=== PATIENT | female | born 1985 | race African-American/Black ===

== ENCOUNTER → 2020-04-06 08:05 | Outpatient (BNVA) | payer OTHER, SELFPAY | PROVIDERS: Visit Provider Obstetrics & Gynecology | DX: Z30.09 Encounter for other general counseling and advice on contraception (principal) | CPT/HCPCS: 99212 ==

== ENCOUNTER 2020-04-11 11:13 | Outpatient (REF) | payer OTHER, SELFPAY ==
[2020-04-11 14:26] LABS: CT PCR NOT DETECTED (Not Detect.); NG PCR NOT DETECTED (Not Detect.)
== END 2020-04-11 11:14 | disposition home or self-care (01) ==
LOC: HO.LAB 11:13
PROVIDERS: PCP Internal Medicine; Visit Provider Obstetrics & Gynecology
DX: Z30.09 Encounter for other general counseling and advice on contraception (principal)
CPT/HCPCS: 87491; 87591

== ENCOUNTER → 2020-05-23 08:49 | Outpatient (BNVA) | payer OTHER, SELFPAY | PROVIDERS: PCP Internal Medicine; Visit Provider Obstetrics & Gynecology | DX: Z76.89 Persons encountering health services in other specified circumstances (principal) ==

== ENCOUNTER 2020-06-17 | Outpatient (REF) | payer OTHER, SELFPAY ==
[2020-06-18 14:17] LABS: H Pylori Breath Test NOT DETECTED (NOT DETECTED)
== END 2020-06-17 00:01 | disposition home or self-care (01) ==
LOC: HO.LNP
PROVIDERS: Visit Provider Surgery
DX: Z01.818 Encounter for other preprocedural examination (principal); E66.01 Morbid (severe) obesity due to excess calories; Z11.0 Encounter for screening for intestinal infectious diseases
CPT/HCPCS: 83013

== ENCOUNTER → 2020-06-17 10:31 | Outpatient (BNVA) | payer OTHER, SELFPAY | PROVIDERS: PCP Internal Medicine; Visit Provider Surgery | DX: Z01.818 Encounter for other preprocedural examination (principal); E66.01 Morbid (severe) obesity due to excess calories; Z68.41 Body mass index [BMI] 40.0-44.9, adult; R06.02 Shortness of breath | CPT/HCPCS: 83013; 99202; 99211 ==

== ENCOUNTER → 2020-06-20 08:04 | Outpatient (BNVA) | payer OTHER, SELFPAY | PROVIDERS: PCP Internal Medicine; Visit Provider Obstetrics & Gynecology | DX: Z30.431 Encounter for routine checking of intrauterine contraceptive device (principal) | CPT/HCPCS: 99212 ==

== ENCOUNTER 2020-06-21 09:22 | Outpatient (REF) | payer OTHER, SELFPAY ==
--- NOTE | 2020-06-21 09:55 | ECG_ITS ---
Test Reason : CP Blood Pressure : / mmHG Vent. Rate : 091 BPM Atrial Rate : 091 BPM P-R Int : 148 ms QRS Dur : 076 ms QT Int : 380 ms P-R-T Axes : 050 036 004 degrees QTc Int : 467 ms Normal sinus rhythm Nonspecific T wave abnormality Prolonged QT Abnormal ECG When compared to the previous EKG of Nonspecific T wave changes present Referred By: Thais eNff Electronically Signed By:TABATHA WYLIE MD
[2020-06-21 10:04] LABS: MANUAL DIFF FLAG NO
[2020-06-21 10:08] LABS: Basophils Absolute Auto 0.1 X10*3/uL (0.0-0.2); Basophils Percent Auto 0.6 % (0-2); Eosinophils Absolute Auto 0.3 X10*3/uL (0.0-0.4); Hematocrit 36.8 % (37-47); Hemoglobin 11.7 g/dl (12.0-16.0); Imm Gran Abs Auto 0.02 X10*3/uL (0.00-0.03); Imm Gran Pct Auto 0.2 % (0.0-0.4); Lymphocytes Absolute Auto 2.5 X10*3/uL (1.2-4.9); Lymphocytes Percent Auto 28.1 % (20-40); Mean Corpuscular HGB Conc 31.8 g/dl (31.0-35.0); Mean Corpuscular Hemoglobin 21.3 pg (27.0-33.0); Mean Corpuscular Volume 66.9 fL (80-98); Mean Platelet Volume 9.3 fL (9.4-12.3); Monocytes Absolute Auto 0.6 X10*3/uL (0.1-1.2); Monocytes Percent Auto 6.7 % (2-11); Neutrophils Absolute Auto 5.4 X10*3/uL (2.0-8.3); Neutrophils Percent Auto 61.4 % (45-73); Platelet Count 439 X10*3/uL (160-400); Red Cell Distribution Width 18.2 % (11.0-16.0); White Blood Count 8.8 X10*3/uL (4.8-10.8)
--- NOTE | 2020-06-21 10:19 | XR_ITS ---
EXAMINATION: XR CHEST CLINICAL INFORMATION: Shortness of breath. COMPARISON: None TECHNIQUE: 2 views of the chest were obtained. FINDINGS: The lungs are clear. The cardiomediastinal silhouette is normal in size. There is no pleural effusion or pneumothorax. No acute osseous abnormality. XR/XR chest 2V IMPRESSION: No acute cardiopulmonary findings.
[2020-06-21 10:33] LABS: Alanine Aminotransferase 21 U/L (0-31); Albumin Level 4.3 g/dL (3.5-5.0); Alkaline Phosphatase 77 U/L (39-117); Anion Gap 13 (12-20); Aspartate Amino Transferase 17 U/L (5-31); Bilirubin Total 0.3 mg/dL (0.0-1.0); Blood Urea Nitrogen 9 mg/dL (9-16); C Reactive Protein 4.28 mg/dL (< or = 0.50); Calcium 9.1 mg/dL (8.4-10.2); Carbon Dioxide 24 mmol/L (22-29); Chloride 107 mmol/L (96-108); Cholesterol 201 mg/dL; Estimated Glomerular Filt Rate > 60; Glucose Fasting 88 mg/dL (60-99); HDL Cholesterol 34 mg/dL; Iron 37 mcg/dL (30-160); LDL Cholesterol Calculated 148 mg/dl; Percent Iron Saturation 10 % (15-50); Sodium 140 mmol/L (135-145); Total Iron Binding Capacity 357 mcg/dL (228-428); Total Protein 7.4 g/dL (6.5-8.0); Triglycerides 96 mg/dL; Unsaturated Iron Binding 320 ug/dL
[2020-06-21 10:49] LABS: Thyroid Stimulating Hormone 0.55 uIU/mL (0.32-4.0); Vitamin D 25-OH Total 11.1 ng/mL (>30)
[2020-06-21 10:56] LABS: Vitamin B12 866 pg/mL (200-900)
[2020-06-22 16:58] LABS: Calcium (PTHI) 9.3 mg/dL (8.6-10.2); PTHI 23 pg/mL (14-64)
[2020-06-23 23:43] LABS: Zinc 54 mcg/dL (60-130)
[2020-06-24 21:37] LABS: Vitamin A 35 mcg/dL (38-98)
[2020-06-29 13:06] LABS: Vitamin B1 10 nmol/L (8-30)
== END 2020-06-21 09:23 | disposition home or self-care (01) ==
LOC: HO.LAB 09:22
PROVIDERS: Visit Provider Surgery
DX: Z01.818 Encounter for other preprocedural examination (principal); R06.02 Shortness of breath; E55.9 Vitamin D deficiency, unspecified
CPT/HCPCS: 36415; 71046; 80053; 80061; 82306; 82607; 83540; 83970; 84425; 84443; 84590; 84630; 85025; 86140; 93005

== ENCOUNTER → 2020-07-01 08:28 | Outpatient (BNVA) | payer OTHER, SELFPAY | PROVIDERS: PCP Internal Medicine; Visit Provider Surgery ==

== ENCOUNTER 2020-07-04 08:08 | Outpatient (REF) | payer OTHER, SELFPAY ==
[2020-07-08 06:57] LABS: HPV mRNA E6/E7 rflx Not Detected (Not Detected)
== END 2020-07-04 08:09 | disposition home or self-care (01) ==
LOC: HO.LAB 08:08
PROVIDERS: PCP Nurse Practitioner; Visit Provider Obstetrics & Gynecology
DX: Z01.419 Encounter for gynecological examination (general) (routine) without abnormal findings (principal)
CPT/HCPCS: 36415; 87624; 88142

== ENCOUNTER → 2020-07-15 08:08 | Outpatient (BNVA) | payer OTHER, SELFPAY | PROVIDERS: PCP Internal Medicine; Visit Provider Dietitian, Registered ==

== ENCOUNTER 2020-07-25 11:06 | Outpatient (REF) | payer OTHER, SELFPAY ==
[2020-07-25 12:08] LABS: Vitamin D 25-OH Total 42.6 ng/mL (>30)
[2020-07-28 23:07] LABS: Vitamin A 35 mcg/dL (38-98)
== END 2020-07-25 11:07 | disposition home or self-care (01) ==
LOC: HO.LAB 11:06
PROVIDERS: Visit Provider Surgery
DX: Z01.818 Encounter for other preprocedural examination (principal); E55.9 Vitamin D deficiency, unspecified
CPT/HCPCS: 36415; 82306; 84590

== ENCOUNTER 2020-07-28 10:47 | Outpatient (REF) | payer OTHER, SELFPAY ==
[2020-08-02 02:26] LABS: Zinc 65 mcg/dL (60-130)
== END 2020-07-28 10:48 | disposition home or self-care (01) ==
LOC: HO.LAB 10:47
PROVIDERS: Visit Provider Surgery
DX: Z01.818 Encounter for other preprocedural examination (principal)
CPT/HCPCS: 36415; 84630

== ENCOUNTER → 2020-08-15 10:35 | Outpatient (BNVA) | payer OTHER, SELFPAY | PROVIDERS: PCP Internal Medicine; Visit Provider Surgery | DX: E66.01 Morbid (severe) obesity due to excess calories (principal); Z68.41 Body mass index [BMI] 40.0-44.9, adult | CPT/HCPCS: 99212 ==

== ENCOUNTER → 2020-09-05 13:15 | Outpatient (BNVA) | payer OTHER, SELFPAY | PROVIDERS: PCP Internal Medicine; Visit Provider Surgery | DX: E66.01 Morbid (severe) obesity due to excess calories (principal); Z68.41 Body mass index [BMI] 40.0-44.9, adult | CPT/HCPCS: 99212 ==

== ENCOUNTER → 2020-09-20 13:43 | Outpatient (BNVA) | payer OTHER, SELFPAY | PROVIDERS: PCP Internal Medicine; Visit Provider Surgery | DX: E66.01 Morbid (severe) obesity due to excess calories (principal); Z68.41 Body mass index [BMI] 40.0-44.9, adult | CPT/HCPCS: 99212 ==

== ENCOUNTER 2020-10-10 13:08 | Outpatient (REF) | payer OTHER, SELFPAY ==
[2020-10-14 10:37] LABS: Vitamin A 35 mcg/dL (38-98)
== END 2020-10-10 13:09 | disposition home or self-care (01) ==
LOC: HO.LAB 13:08
PROVIDERS: PCP Internal Medicine; Visit Provider Surgery
DX: Z01.818 Encounter for other preprocedural examination (principal); E50.9 Vitamin A deficiency, unspecified
CPT/HCPCS: 36415; 84590

== ENCOUNTER → 2020-11-01 13:33 | Outpatient (BNVA) | payer OTHER, SELFPAY | PROVIDERS: PCP Internal Medicine; Visit Provider Surgery | DX: E66.01 Morbid (severe) obesity due to excess calories (principal); Z68.41 Body mass index [BMI] 40.0-44.9, adult | CPT/HCPCS: 99212 ==

== ENCOUNTER → 2020-12-22 13:56 | Outpatient (BNVA) | payer OTHER, SELFPAY | PROVIDERS: PCP Internal Medicine; Visit Provider Surgery | DX: E66.01 Morbid (severe) obesity due to excess calories (principal); Z68.41 Body mass index [BMI] 40.0-44.9, adult | CPT/HCPCS: 99212 ==

== ENCOUNTER → 2021-01-03 12:49 | Outpatient (BNVA) | payer OTHER, SELFPAY | PROVIDERS: PCP Internal Medicine; Visit Provider Surgery | DX: E66.01 Morbid (severe) obesity due to excess calories (principal); Z68.41 Body mass index [BMI] 40.0-44.9, adult | CPT/HCPCS: 99212 ==

== ENCOUNTER → 2021-01-06 13:29 | Outpatient (BNVA) | payer OTHER, SELFPAY | PROVIDERS: PCP Internal Medicine; Visit Provider Physician Assistant ==

== ENCOUNTER 2021-01-11 09:46 | Inpatient (IN) | payer OTHER, SELFPAY ==
--- NOTE | 2021-01-03 13:57 | ECG_ITS ---
Test Reason : SOB Blood Pressure : / mmHG Vent. Rate : 093 BPM Atrial Rate : 093 BPM P-R Int : 142 ms QRS Dur : 080 ms QT Int : 366 ms P-R-T Axes : 053 035 004 degrees QTc Int : 455 ms Normal sinus rhythm Nonspecific T wave abnormality Abnormal ECG When compared with ECG of 21-JUN-2020 10:17, No significant change was found Referred By: Thais Neff Electronically Signed By:YUMIKO ERICKSON
[2021-01-03 14:34] LABS: MANUAL DIFF FLAG NO
[2021-01-03 14:39] LABS: Basophils Absolute Auto 0.1 X10*3/uL (0.0-0.2); Basophils Percent Auto 0.6 % (0-2); Eosinophils Absolute Auto 0.2 X10*3/uL (0.0-0.4); Eosinophils Percent Auto 2.3 % (0-4); Hematocrit 38.3 % (37-47); Hemoglobin 12.3 g/dl (12.0-16.0); Imm Gran Abs Auto 0.01 X10*3/uL (0.00-0.03); Imm Gran Pct Auto 0.1 % (0.0-0.4); Lymphocytes Absolute Auto 3.2 X10*3/uL (1.2-4.9); Lymphocytes Percent Auto 32.9 % (20-40); Mean Corpuscular HGB Conc 32.1 g/dl (31.0-35.0); Mean Corpuscular Hemoglobin 22.6 pg (27.0-33.0); Mean Corpuscular Volume 70.4 fL (80-98); Mean Platelet Volume 9.5 fL (9.4-12.3); Monocytes Absolute Auto 0.6 X10*3/uL (0.1-1.2); Monocytes Percent Auto 6.5 % (2-11); Neutrophils Absolute Auto 5.6 X10*3/uL (2.0-8.3); Neutrophils Percent Auto 57.6 % (45-73); Platelet Count 386 X10*3/uL (160-400); Red Blood Count 5.44 X10*6/uL (4.20-5.50); White Blood Count 9.7 X10*3/uL (4.8-10.8)
[2021-01-03 14:42] LABS: Glucose Urine UA NEG (NEG); Leukocyte Esterase Urine NEG (NEG); Nitrite Urine NEG (NEG); Specific Gravity - Urine <= 1.005 (1.005-1.025); Urine Blood NEG (NEG); Urine Ketones 15 MG/DL (NEG); Urine Protein NEG (NEG-TRACE)
[2021-01-03 14:43] LABS: INTERNATIONAL NORM RATIO 1.1 (0.9-1.1); Prothrombin Time 12.9 SEC (9.9-13.0)
[2021-01-03 14:44] LABS: Appearance Urine CLEAR; Color Urine STRAW
[2021-01-03 14:45] LABS: UPreg QC Valid YES; Urine Pregnancy NEGATIVE (NEGATIVE)
[2021-01-03 14:55] LABS: Albumin Level 4.4 g/dL (3.5-5.0); Anion Gap 16 (12-20); Blood Urea Nitrogen 7 mg/dL (9-16); Calcium 9.4 mg/dL (8.4-10.2); Carbon Dioxide 23 mmol/L (22-29); Chloride 105 mmol/L (96-108); Estimated Glomerular Filt Rate > 60; Glucose Random 76 mg/dL (60-115); Potassium 3.9 mmol/L (3.3-5.1); Sodium 140 mmol/L (135-145)
[2021-01-05 16:34] VITALS: BMI 41.1
[2021-01-09 12:36] LABS: Vitamin A 31 mcg/dL (38-98)
--- NOTE | 2021-01-10 09:37 | P.CONAN_ITS ---
Documented by User: Betsy Larios 01/10/21 09:38 HPI - Anesthesia Eval Consult details Narrative: 35yo F for Gastrectomy Sleeve, EGD, Poss Diaphragmatic Hernia,Poss open PMFSH Active Problems Active Problems: All Active Problems (Updated 01/05/21 @ 16:32 by Blanca Rossi) Family planning (Acute) Shortness of breath (Acute) Morbid obesity due to excess calories (Acute) BMI 40.0-44.9, adult (Acute) Preoperative examination (Acute) IUD check up (Acute) Vitamin D deficiency (Acute) Zinc deficiency (Acute) Vitamin A deficiency (Acute) Well woman exam (Acute) Past Medical History Medical History (Updated 01/11/21 @ 14:22 by Odilia Leal PA-C) COVID-19 vaccine series completed Hiatal hernia Hypercholesterolemia PONV (postoperative nausea and vomiting) Family History Family History Father No problems noted. Mother No problems noted. Sister No problems noted. Son No problems noted. Daughter No problems noted. Maternal Grandfather Heart disease Maternal Grandmother Type 2 diabetes mellitus Surgical History Surgical History (Updated 01/11/21 @ 14:22 by Odilia Leal PA-C) History of History of repair of hiatal hernia S/P laparoscopic sleeve gastrectomy Social History Social History Are you a primary personal care aid to a significant other at home: Yes (2 children) Do you presently have visiting nurse or other home services: No Alcohol intake: former Patient Tobacco Use Status: Never used Tobacco Have you been hit, kicked, punched, or otherwise hurt by someone within the past year? If so, by whom?: No Are you DNR?: No Advance Directives: No Advance Directives Information Provided: No Advance Directives on File: No Recently lost weight without trying: No Patient : No FDLMP: 06/2020 : No Poor oral hygiene: No Sexual orientation: Straight/Heterosexual Gender identity: female Meds Allergies Allergy/AdvReac Type Severity Reaction Status Date / Time tetracycline Allergy Mild Hives Verified 01/11/21 09:44 Home Medications Medication Instructions Recorded Confirmed Last Taken Type levonorgestrel 20 mcg/24 hours (6 INTRAUTERINE .5 years ea 05/23/20 01/03/21 Unknown History yrs) 52 mg intrauterine device (Mirena) Exam Exam Date and Time: January 10, 2021 0937 Height,Weight and Vital Signs: Height 5 ft 4 in Weight 108.862 kg Pertinent Lab Results Pertinent Lab Results: Laboratory Tests 01/03/21 01/03/21 01/03/21 14:00 14:00 14:00 WBC 9.7 RBC 5.44 Hgb 12.3 Hct 38.3 MCV 70.4 L MCH 22.6 L MCHC 32.1 RDW 18.0 H Plt Count 386 MPV 9.5 Immature Gran % (Auto) 0.1 Neut % (Auto) 57.6 Lymph % (Auto) 32.9 [place] % (Auto) 6.5 Eos % (Auto) 2.3 Baso % (Auto) 0.6 Lymph # (Auto) 3.2 [place] # (Auto) 0.6 Eos # (Auto) 0.2 Baso # (Auto) 0.1 Abs Immat Gran (auto) 0.01 Absolute Neuts (auto) 5.6 Absolute Nucleated RBC 0.000 Nucleated RBC % (auto) 0.0 PT 12.9 INR 1.1 APTT 39.0 H Sodium Potassium Chloride Carbon Dioxide Anion Gap BUN Creatinine Estim Creat Clear Calc Estimated GFR Random Glucose Calcium Albumin Vitamin A Urine Color STRAW Urine Appearance CLEAR Urine pH 6.0 Ur Specific [place] <= 1.005 Urine Protein NEG Urine Glucose (UA) NEG Urine Ketones 15 Urine Blood NEG Urine Nitrite NEG Ur Leukocyte Esterase NEG Urine Test Blood Type Antibody Screen 01/03/21 01/03/21 01/03/21 14:00 14:00 14:00 WBC RBC Hgb Hct MCV MCH MCHC RDW Plt Count MPV Immature Gran % (Auto) Neut % (Auto) Lymph % (Auto) [place] % (Auto) Eos % (Auto) Baso % (Auto) Lymph # (Auto) [place] # (Auto) Eos # (Auto) Baso # (Auto) Abs Immat Gran (auto) Absolute Neuts (auto) Absolute Nucleated RBC Nucleated RBC % (auto) PT INR APTT Sodium 140 Potassium 3.9 Chloride 105 Carbon Dioxide 23 Anion Gap 16 BUN 7 L Creatinine 0.68 Estim Creat Clear Calc TNP Estimated GFR > 60 Random Glucose 76 Calcium 9.4 Albumin 4.4 Vitamin A 31 L Urine Color Urine Appearance Urine pH Ur Specific [place] Urine Protein Urine Glucose (UA) Urine Ketones Urine Blood Urine Nitrite Ur Leukocyte Esterase Urine Test NEGATIVE Blood Type Antibody Screen 01/03/21 14:00 WBC RBC Hgb Hct MCV MCH MCHC RDW Plt Count MPV Immature Gran % (Auto) Neut % (Auto) Lymph % (Auto) [place] % (Auto) Eos % (Auto) Baso % (Auto) Lymph # (Auto) [place] # (Auto) Eos # (Auto) Baso # (Auto) Abs Immat Gran (auto) Absolute Neuts (auto) Absolute Nucleated RBC Nucleated RBC % (auto) PT INR APTT Sodium Potassium Chloride Carbon Dioxide Anion Gap BUN Creatinine Estim Creat Clear Calc Estimated GFR Random Glucose Calcium Albumin Vitamin A Urine Color Urine Appearance Urine pH Ur Specific [place] Urine Protein Urine Glucose (UA) Urine Ketones Urine Blood Urine Nitrite Ur Leukocyte Esterase Urine Test Blood Type O Positive Antibody Screen NEGATIVE Narrative Narrative: EKG 12/2020 Vent. Rate : 093 BPM ? ? Atrial Rate : 093 BPM ?? P-R Int : 142 ms? QRS Dur : 080 ms ? ? QT Int : 366 ms ? ? ? P-R-T Axes : 053 035 004 degrees ?? QTc Int : 455 ms ? Normal sinus rhythm Nonspecific T wave abnormality Abnormal ECG When compared with ECG of 21-JUN-2020 10:17, No significant change was found Assessment and Plan Assessment Anesthesia Assessment: Chart Reviewed Documented by User: Ann Middleton MD 01/11/21 14:36 ON LICENSE OF [facility] Past Medical History Medical History (Updated 01/11/21 @ 14:22 by Odilia Leal PA-C) COVID-19 vaccine series completed Hiatal hernia Hypercholesterolemia PONV (postoperative nausea and vomiting) Family History Family History Father No problems noted. Mother No problems noted. Sister No problems noted. Son No problems noted. Daughter No problems noted. Maternal Grandfather Heart disease Maternal Grandmother Type 2 diabetes mellitus Family history of problems with anesthesia: No Surgical History Surgical History (Updated 01/11/21 @ 14:22 by Odilia Leal PA-C) History of History of repair of hiatal hernia S/P laparoscopic sleeve gastrectomy History of Problems with Anesthesia: Yes (PONV after 2014) Social History Social History Are you a primary personal care aid to a significant other at home: Yes (2 children) Do you presently have visiting nurse or other home services: No Alcohol intake: former Patient Tobacco Use Status: Never used Tobacco Have you been hit, kicked, punched, or otherwise hurt by someone within the past year? If so, by whom?: No Are you DNR?: No Advance Directives: No Advance Directives Information Provided: No Advance Directives on File: No Recently lost weight without trying: No Patient : No FDLMP: 06/2020 : No Poor oral hygiene: No Sexual orientation: Straight/Heterosexual Gender identity: female Meds Allergies Allergy/AdvReac Type Severity Reaction Status Date / Time tetracycline Allergy Mild Hives Verified 01/11/21 09:44 Home Medications Medication Instructions Recorded Confirmed Last Taken Type levonorgestrel 20 mcg/24 hours (6 INTRAUTERINE .5 years ea 05/23/20 01/03/21 Unknown History yrs) 52 mg intrauterine device (Mirena) Exam Height,Weight and Vital Signs: Height 5 ft 4 in Weight 108.862 kg Vital Signs Temp Pulse Resp BP Pulse Ox 97.9 F 81 18 138/92 H 98 01/11/21 10:02 01/11/21 10:02 01/11/21 10:02 01/11/21 10:02 01/11/21 10:02 Pertinent Lab Results Pertinent Lab Results: Laboratory Tests 01/03/21 01/03/21 01/03/21 14:00 14:00 14:00 WBC 9.7 RBC 5.44 Hgb 12.3 Hct 38.3 MCV 70.4 L MCH 22.6 L MCHC 32.1 RDW 18.0 H Plt Count 386 MPV 9.5 Immature Gran % (Auto) 0.1 Neut % (Auto) 57.6 Lymph % (Auto) 32.9 [place] % (Auto) 6.5 Eos % (Auto) 2.3 Baso % (Auto) 0.6 Lymph # (Auto) 3.2 [place] # (Auto) 0.6 Eos # (Auto) 0.2 Baso # (Auto) 0.1 Abs Immat Gran (auto) 0.01 Absolute Neuts (auto) 5.6 Absolute Nucleated RBC 0.000 Nucleated RBC % (auto) 0.0 PT 12.9 INR 1.1 APTT 39.0 H Sodium Potassium Chloride Carbon Dioxide Anion Gap BUN Creatinine Estim Creat Clear Calc Estimated GFR Random Glucose Calcium Albumin Vitamin A Urine Color STRAW Urine Appearance CLEAR Urine pH 6.0 Ur Specific [place] <= 1.005 Urine Protein NEG Urine Glucose (UA) NEG Urine Ketones 15 Urine Blood NEG Urine Nitrite NEG Ur Leukocyte Esterase NEG Urine Test Blood Type Antibody Screen 01/03/21 01/03/21 01/03/21 14:00 14:00 14:00 WBC RBC Hgb Hct MCV MCH MCHC RDW Plt Count MPV Immature Gran % (Auto) Neut % (Auto) Lymph % (Auto) [place] % (Auto) Eos % (Auto) Baso % (Auto) Lymph # (Auto) [place] # (Auto) Eos # (Auto) Baso # (Auto) Abs Immat Gran (auto) Absolute Neuts (auto) Absolute Nucleated RBC Nucleated RBC % (auto) PT INR APTT Sodium 140 Potassium 3.9 Chloride 105 Carbon Dioxide 23 Anion Gap 16 BUN 7 L Creatinine 0.68 Estim Creat Clear Calc TNP Estimated GFR > 60 Random Glucose 76 Calcium 9.4 Albumin 4.4 Vitamin A 31 L Urine Color Urine Appearance Urine pH Ur Specific [place] Urine Protein Urine Glucose (UA) Urine Ketones Urine Blood Urine Nitrite Ur Leukocyte Esterase Urine Test NEGATIVE Blood Type Antibody Screen 01/03/21 14:00 WBC RBC Hgb Hct MCV MCH MCHC RDW Plt Count MPV Immature Gran % (Auto) Neut % (Auto) Lymph % (Auto) [place] % (Auto) Eos % (Auto) Baso % (Auto) Lymph # (Auto) [place] # (Auto) Eos # (Auto) Baso # (Auto) Abs Immat Gran (auto) Absolute Neuts (auto) Absolute Nucleated RBC Nucleated RBC % (auto) PT INR APTT Sodium Potassium Chloride Carbon Dioxide Anion Gap BUN Creatinine Estim Creat Clear Calc Estimated GFR Random Glucose Calcium Albumin Vitamin A Urine Color Urine Appearance Urine pH Ur Specific [place] Urine Protein Urine Glucose (UA) Urine Ketones Urine Blood Urine Nitrite Ur Leukocyte Esterase Urine Test Blood Type O Positive Antibody Screen NEGATIVE Urine 01/03/21 01/03/21 01/11/21 Range/Units 14:00 14:00 09:42 Urine Color STRAW Urine Appearance CLEAR Urine pH 6.0 (5.0-8.0) Ur Specific [place] <= 1.005 (1.005-1.025) Urine Protein NEG (NEG-TRACE) MG/DL Urine Glucose (UA) NEG (NEG) MG/DL Urine Test NEGATIVE NEGATIVE (NEGATIVE) Laboratory Results - last 24 hr 01/11/21 01/11/21 09:42 09:42 Urine Test NEGATIVE COVID-19 (VINNIE) Negative COVID-19 Clin Com See Note Airway Mallampati Class: II TM Dist: >3cm Neck ROM: Full Loose/Missing/Broken Teeth: No Heart: RRR Lungs: CTAB Assessment and Plan Assessment Anesthesia Assessment: Anesthesia Plan Discussed Final Anesthetic Review Family History of Problems with Anesthesia: No History of Problems with Anesthesia: Yes (PONV after 2014) NPO: Yes ASA Class: III Final Preanesthetic Review: No Changes in Pt Med Stat, Meds/Allgs Chart Reviewed, Consent Obtained/Reviewed and Anes Risks/Benef Reviewed Patient Risk: Intermediate Procedure Risk: Intermediate Assessment/Block/Sedation in SS: Assess/Block/Sedation-SS Anesthetic Plan Anesthetic Plan: GA Disposition: Standard PACU and Inp. Admit - Standard Bed
--- NOTE | 2021-01-10 16:37 | MHC.SHP ---
Pre-Procedural Eval Section A Date of Service: 01/10/21 Section B Chief Complaint: Morbid Severe Obesity Allergies: Allergies Allergy/AdvReac Type Severity Reaction Status Date / Time tetracycline Allergy Hives Verified 01/05/21 16:31 Plan I have reviewed the history and physical and performed a pertinent physical examination on my patient. No changes have occurred unless specified.
[2021-01-11] VITALS (15 sets, daily range): BP systolic 129–154; BP diastolic 67–98; PULSE 69–100; RESP 14–18; TEMP 36.2–37; O2SAT 93–100
[2021-01-11 10:05] LABS: UPreg QC Valid YES; Urine Pregnancy NEGATIVE (NEGATIVE)
[2021-01-11 10:12] LABS: COVID-19 Test Negative (Negative)
[2021-01-11] MEDS: Lactated Ringers 1,000 ML 100 ML IVCONT (10:18)
[2021-01-11] MEDS: Scopolamine 1.5 MG PATCH.TD.3 TRANSDERMA (10:29)
--- NOTE | 2021-01-11 14:18 | PM.PNGS ---
Subjective Subjective Date of Service: 01/16/21 Interval history: Pod #1. Doing well. Tolerating stage 3 diet, ambulating in hallway. Pain well controlled. Denies nausea or vomiting. Vitals and labs reviewed and are within limit for post op day 1. On exam, patient is well appearing, abdomen is soft, nd, mild appropriate incisional tenderness. Incisions c/d/i with dermabond in place. Plan: d/c home today. Follow up with me in 2 weeks. Physical Exam Vital Signs: Vital Signs: Last Vital Signs Temp 98.6 F 01/11/21 14:08 Pulse 96 01/11/21 14:18 Resp 16 01/11/21 14:18 BP 150/92 H 01/11/21 14:18 Pulse Ox 100 01/11/21 14:18 Body Mass Index 41.1 Const: General: cooperative, comfortable, no acute distress, alert and awake Nutritional Appearance: obese GI: Inspection: Yes normal to inspection, No distended and Yes incision (clean, dry, intact, dermabond in place) Palpation (GI): Soft to palpation and Tenderness to palpation present (GI) (mild appropriate incisional tenderness) Extrem: Right lower extremity: lower leg Details: Negative for no tenderness; No no edema Left lower extremity: lower leg Details: Negative for no tenderness; No no edema Progress Note: A&P Assessment and plan (1) Morbid obesity due to excess calories: Status: Acute (2) S/P laparoscopic sleeve gastrectomy: Status: Acute (3) Hiatal hernia: Status: Acute (4) History of repair of hiatal hernia: Status: Acute Fall Risk Details Current Medications: Current Medications Generic Name Dose Route Start Last Admin Trade Name Freq PRN Reason Stop Dose Admin Famotidine 20 mg 01/11/21 21:00 Famotidine/Pf 20 Mg/2 Ml Vial IVPUSH BID CHRIS Hydromorphone HCl 0.25 mg 01/11/21 14:16 Hydromorphone Hcl 0.5 Mg/0.5 Ml Syringe IVPUSH Q4H PRN Pain, Severe (Pain Scale 7-10) Lactated Ringer's 1,000 mls @ 100 mls/hr 01/11/21 10:00 01/11/21 10:18 Lr IVCONT 100 mls/hr .Q10H CHRIS Administration Lactated Ringer's 1,000 mls @ 125 mls/hr 01/11/21 14:15 Lr IVCONT .Q8H CHRIS Cefotetan Disodium 2 gm/ 50 mls @ 100 mls/hr 01/11/21 14:11 Sodium Chloride IV 01/11/21 14:40 POSTOP ONE Acetaminophen 1,000 mg in 100 mls @ 16.7 mls/hr 01/11/21 14:30 Ofirmev IV .Q6H CHRIS Metoclopramide HCl 10 mg 01/11/21 14:16 Metoclopramide Hcl 10 Mg/2 Ml Vial IVPUSH Q6H PRN Nausea Ondansetron HCl 4 mg 01/11/21 14:30 Ondansetron Hcl 4 Mg/2 Ml Vial IVPUSH Q8H CHRIS Sodium Chloride 3 ml 01/11/21 16:00 0.9 % Sodium Chloride Flush 3 Ml Syringe IVFLUSH QSHIFT CHRIS Time Spent With Patient Time: Total time spent is greater than 50% in coordination of care (as documented) at patient's floor/unit and/or counseling patient: Time with patient: 25 - 35 minutes
--- NOTE | 2021-01-11 14:23 | P.DS_ITS ---
DS: Providers Provider Date of Service: 01/12/21 Date of admission: 01/11/21 09:46 Primary care physician: Selvin Ovalles MD DS: Diagnosis Discharge Diagnosis (1) Morbid obesity due to excess calories: Status: Acute (2) S/P laparoscopic sleeve gastrectomy: Status: Acute (3) Hiatal hernia: Status: Acute (4) History of repair of hiatal hernia: Status: Acute DS: Medications Discharge Medications Home Medications: Home Medications Medication Instructions Recorded Confirmed levonorgestrel 20 mcg/24 hours (6 INTRAUTERINE .5 years ea 05/23/20 01/03/21 yrs) 52 mg intrauterine device (Mirena) Previous Rx's Medication Instructions Recorded acetaminophen 500 mg tablet 1,000 mg PO Q6H PRN #30 tab 01/03/21 (Tylenol Extra Strength) docusate sodium 100 mg capsule 100 mg PO BID #30 cap 01/03/21 (Colace) famotidine 20 mg tablet (Pepcid AC) 20 mg PO DAILY #30 tab 01/03/21 ondansetron HCl 4 mg tablet 4 mg PO Q6H PRN #30 tab 01/03/21 (Zofran) simethicone 80 mg chewable tablet 80 mg PO TID-QID PRN #30 tab 01/03/21 (Gas Relief (simethicone)) DS: Summary Time Spent with Patient Time attestation: Total time spent providing and/or coordinating discharge services: Discharge coordination time: Greater than 30 minutes Quality: Stroke Does the patient have a stroke diagnosis?: No Physical Exam Vital Signs: Vital Signs: Last Vital Signs Temp 98.6 F 01/11/21 14:08 Pulse 96 01/11/21 14:18 Resp 16 01/11/21 14:18 BP 150/92 H 01/11/21 14:18 Pulse Ox 100 01/11/21 14:18 Body Mass Index 41.1 DS: Data Data Completed and Pending Pending studies at discharge: Pending at discharge 01/11/21 13:39 Surgical [PTH] Routine Labs on day of discharge: Laboratory Results - last 24 hr 01/11/21 01/11/21 09:42 09:42 Urine Test NEGATIVE COVID-19 (VINNIE) Negative COVID-19 Clin Com See Note Discharge Plan Discharge Patient Disposition: Home, Self-Care Discharge Diagnosis: obesity s/p LSG and HH repair Referrals: Selvin Ovalles MD [Primary Care Provider] - 1 Week Discharge Medications: Continued Mirena 20 mcg/24 hours (6 yrs) 52 mg intrauterine device intrauterine .5 years RF: 0 acetaminophen [Tylenol Extra Strength] 500 mg tablet 1,000 mg PO Q6H PRN (Reason: pain) Qty: 30 RF: 1 famotidine [Pepcid AC] 20 mg tablet 20 mg PO DAILY Qty: 30 RF: 1 simethicone [Gas Relief (simethicone)] 80 mg tablet,chewable 80 mg PO TID-QID PRN (Reason: abdominal distention) Qty: 30 RF: 1 ondansetron HCl [Zofran] 4 mg tablet 4 mg PO Q6H PRN (Reason: nausea and vomiting) Qty: 30 RF: 1 docusate sodium [Colace] 100 mg capsule 100 mg PO BID Qty: 30 RF: 1 Discharge Orders: Discharge Order (Routine); Ordered 01/12/21 Ordered By: Thais Neff Diet: other Activity on Discharge: No heavy lifting Stand Alone Forms: Patient Portal Discharge page Activity Restrictions/Additional Instructions: Discharge Instructions 1. Please call your doctor or come back to the emergency room should any new symptoms arise. 2. You will receive a courtesy call from [facility] 24-48 hours after discharge. 3. Activity: abstain from alcohol, practice limited stair climbing, no bending, no driving, no exercise, no illicit substances, no lifting, no sex, no tub bath, no work. 4. Diet: continue stage 3 protein shakes until your [address] Neff. 5. Dressing Change/Wound Care: Your incision is covered by surgical glue. If the area is tender, you may apply an ice pack for short intervals (no more than 20 minutes on, followed by at least 20 minutes off). Do not apply heat. Do not use creams, lotions, or topical antibiotics unless instructed to do so by your surgeon. These can cause infection or allergic reaction. 6. Call your doctor if: - Your temperature exceeds 101.5 F - You experience excessive pain or swelling - You have an unexpected reaction to medication - You have excessive bleeding - You experience continued vomiting/nausea - Your incision begins to separate - Your incision shows signs of infection such as increased redness, swelling, excessive pain, heat, or drainage (light blood or clear fluid is normal) 7. General instructions: - No lifting greater than 5 lbs for the next 4 weeks. - No driving within 24 hours of taking narcotic pain medications. - If you do not move your bowels in the next 2 days, please take milk of magnesia over the counter. Please follow the post op diet and do not advance your diet until you are seen in the office in about 2 weeks. - Please walk around your home every hour or two to prevent blood clots from forming in your legs. You do not need to wake from sleeping to walk. - Please sleep in a bed or couch to prevent kinking at the hips and knees. - Please take your incentive spirometer (your lung bucket chucker) home with you and use it for the next few days to prevent pneumonias. - You may shower, no hot tubs, baths or swimming pools. - Please call the office with any questions or concerns such as increasing abdominal pain, fever, chills, shortness of breath, chest pain, leg pain or swelling, or redness or drainage from your incisions. - Please stay on stage 3 diet which includes sugar free clear liquids such as ice pops and jello and broth and crystal light. Avoid all carbonation. Please drink 3 protein shakes with at least 25-30 grams of protein daily or 3 of the Celebrate 4:1 shakes which can be purchased in our office. The Celebrate shakes have all of the bariatric vitamins you need if you consume these shakes. If you are drinking other protein shakes, you will need to purchase the Celebrate multivitamins and calcium that we provide in the office (they will provide all the vitamins you need). Please make sure you are consuming at least 40-60 ounces of water in addition to your 3 protein shakes daily. 8. Do not hesitate to contact the office with any questions at . The patient's medical history has been reviewed and they are considered low risk for post op DVT and therefore DVT prophylaxis is not considered necessary. Travel after surgery was reviewed. The patient has not disclosed any travel plans during the first 30 days after surgery and they have been advised that within the first 30 days after surgery any bus, plane, train or car travel over 2 hours in duration is contraindicated due to the possibility of developing blood clots from immobility. Any travel, needs to include periods of ambulation of 10 minutes in duration every 2 hours. The patient was instructed to discuss any plans for travel during this period with their bariatric surgeon. Discharge Summary Date of Service: 01/12/21 Pre-op diagnosis: Morbid obesity, BMI 40.6, hypercholesterolemia Post-op diagnosis: other (Same and hiatal hernia) Procedure: Laparoscopic sleeve gastrectomy, hiatal hernia repair, Cristiano block, and intraoperative endoscopy Discharge Medications: 1. Simethicone 80mg tablet chewable (Si tablet every 6 hours orally for 7 days, #28, 1 RF) q4h prn gas 2. Acetaminophen 500 mg tablet (Si tablets as needed every 6 hours orally for 30 days, #240, 0 RF) 3. Ondansetron 4 mg tablet disintegrating (Si tablet every 6 hours orally for 7 days, #28, 1 RF) 4. Colace 100 mg capsule (Si capsule twice a day for 30 days, #60, 2 RF) 5. Pepcid 20 mg chewable tablet (Si tablet twice a day for 30 days, #60, 3 RF) Discharge Instructions: The patient should continue on the stage III bariatric diet, which includes 3 protein shakes of at least 20-30g of protein on a daily basis. The patient was encouraged to avoid drinking liquids with her protein shakes. They should wait 30-45 minutes in between her meals and drinking water. She should drink at least 40-60 ounces of water on a daily basis. They should ambulate while at home to avoid any blood clots in her lower extremities. They should call with any questions or concerns such as increase in abdominal pain, persistent nausea, vomiting, redness and drainage from her incisions, fever, chills, shortness of breast, or chest pain beyond what is normal for her. The patient should avoid all heavy lifting greater than 5 pounds for the next 4 weeks. The patient is already scheduled to follow up with me in 2 weeks time, but should call the office with any questions prior to that follow up appointment. The patient should not advance their diet until they are seen in the office for the 2 week appointment. Hospital Course: The patient was admitted after undergoing a LSG and HH repair. They were started on stage II (1 oz of fluid every 15 minutes) on POD #0. The next morning they were evaluated and started on stage III diet (protein shakes). All labs were within normal limits. On post-operative day #1 she was feeling better, nausea and epigastric pain improved and they were tolerating stage III bariatric diet well. The patient was discharged home. Discharge Disposition: Home. Care Plan Goals: weight loss Health Concerns: obesity Plan of Treatment: LSG Assessment: stable POD #1 Discharge Date/Time: 01/12/21 11:44
--- NOTE | 2021-01-11 14:31 | PM.OP ---
Brief Operative Note Date of Service: 01/11/21 Pre-op diagnosis: Morbid obesity, BMI 40.6, hypercholesterolemia Post-op diagnosis: other (Same and hiatal hernia) Procedure: Laparoscopic sleeve gastrectomy, hiatal hernia repair, Cristiano block, and intraoperative endoscopy Implants: None Surgeon: Thais Neff MD Anesthesia: GETA Was an Compressor Mechanic Bus used for this Procedure?: Yes Compressor Mechanic Bus: Odilia Leal Estimated blood loss (mL): 10 Pathology: other (Partial gastrectomy) Condition: stable Disposition: PACU
--- NOTE | 2021-01-11 14:32 | P.OP_ITS ---
Operative Note Operative Note Date of Service: 01/11/21 Narrative: Patient was brought into the operating room and placed on the operating room table in the supine position. General anesthesia was induced. Normal DVT prophylaxis was instituted and the patient received 2 grams of cefotetan preoperatively. The abdomen was then prepped and draped in the normal sterile fashion. A safety time-out was performed. A mixture of 1% lidocaine with epinephrine and ?% Marcaine plain was used to an esthetize the planned incision site in the left upper quadrant. A #11 scalpel was used to make a 5 mm left upper quadrant transverse incision through which a veress needle was placed. Three pops were heard going through the fascia. A saline drop test was used to confirm that the veress needle was intraabdominal. An optiview technique was then used to place a 5mm port in the left upper quadrant. A 5 mm 30 degree laproscope was then placed through this port and the abdominal cavity was surveyed and was normal. The patient was placed in reverse Trendelenburg positioning. A gavin liver retractor was then placed in the subxyphoid position and it was used to hold up the left lobe of the liver to the abdominal wall. This was secured to the bed using the liver retractor virk. A AYAZ block was then performed for pain control on the right side of the abdomen. A 5 mm port was placed in the right upper quadrant near the falciform ligament. A 12 mm port was then placed in the mid epigastrium. One additional 5 mm port was placed in the left upper quadrant just to the left of the placement of the first port. I then performed a AYAZ block on the left side of the abdomen. I then removed the epigastric fat pad; there was a small anterior hiatal hernia noted. I reapproximated the left and right crura with a total of 2 stitches of 2-0 ethibond and a laparoscopic knot pusher. There was no residual hiatal hernia. I then opened up the angle of His. We then gained entry into the lesser sac about 4-5 cm from the pylorus. I had anesthesia place a 34 [place] orogastric tube into the distal antrum to use as a sizing tool for gastric pouch size. I divided the short gastric vessels up to the angle of His. We then started the creation of the gastric pouch by firing a 60 mm purple load endostapler up the stomach about 4-5 cm from the pylorus. We completed the creation of the gastric pouch using a total of 4 firings of a 60 mm and 1 firing of a 45 mm purple load stapler. We had anesthesia remove the orogastric tube, then we clamped across the distal antrum using a fired 60 mm endostapler. We flattened the patient and then instilled normal saline surrounding the newly created staple line. I then performed an on-table endoscopy. I passed the gastroscopy into the posterior oropharynx and down the esophagus evaluating the esophageal mucosa which was normal. There was no evidence of hiatal hernia. I passed the gastroscope into the gastric pouch and insufflated the gastric pouch. There was healthy pink mucosa and no evidence of active bleeding. There was no evidence of leak on laparosco py. I desufflated the gastric pouch and removed the endoscope. I removed the endostapler from the abdomen and suctioned the fluid from the left upper quadrant. I then removed the partial gastrectomy specimen through the epigastric 12 mm port site. I reapproximated the 12 mm port using a 0 maxon suture with a laparoscopic suture passer. I instilled local anesthetic into the fascial closure site and tied the suture down at a pressure of 8-10 mm of Hg. There was no residual fascial defect. We removed the liver retractor and the left upper quadrant 5 mm ports under direct visualization. There was no evidence of any active bleeding. I desufflated the abdomen through the last remaining port and removed the laparoscope and 5 mm port. We reapproximated all incisions with a 4-0 monocryl subcuticular stitch. We cleaned and dried the abdominal skin and applied dermabond skin glue. All count were correct at the end of the case. The patient was awake and in stable condition prior to extubation and transfer to the recovery room.
[2021-01-11] MEDS: HYDROmorphone HCl 0.5 MG/0.5 ML SYRINGE 0.25 MG IVPUSH ×3 (14:53→17:54)
[2021-01-11] MEDS: Lactated Ringers 1,000 ML 125 ML IVCONT ×2 (15:19→22:24)
[2021-01-11] MEDS: Metoclopramide HCl 10 MG/2 ML VIAL IVPUSH (17:49)
[2021-01-11] MEDS: Famotidine/PF 20 MG/2 ML VIAL IVPUSH (21:33)
[2021-01-11] MEDS: 0.9 % Sodium Chloride Flush 3 ML SYRINGE IVFLUSH (21:34)
[2021-01-12] MEDS: cefoTEtan disodium 2 GM in 0.9 % Sodium Chloride 50 ML IV (00:58)
[2021-01-12] MEDS: HYDROmorphone HCl 0.5 MG/0.5 ML SYRINGE 0.25 MG IVPUSH (01:38)
[2021-01-12 03:52] VITALS: BP 130/68; PULSE 72; RESP 16; TEMP 36.6; O2SAT 96
[2021-01-12 06:05] LABS: MANUAL DIFF FLAG NO
[2021-01-12 06:13] LABS: Basophils Percent Auto 0.1 % (0-2); Hemoglobin 11.5 g/dl (12.0-16.0); Imm Gran Abs Auto 0.05 X10*3/uL (0.00-0.03); Imm Gran Pct Auto 0.4 % (0.0-0.4); Lymphocytes Absolute Auto 1.6 X10*3/uL (1.2-4.9); Lymphocytes Percent Auto 12.3 % (20-40); Mean Corpuscular HGB Conc 31.9 g/dl (31.0-35.0); Mean Corpuscular Hemoglobin 22.2 pg (27.0-33.0); Mean Corpuscular Volume 69.5 fL (80-98); Mean Platelet Volume 9.6 fL (9.4-12.3); Monocytes Absolute Auto 1.1 X10*3/uL (0.1-1.2); Monocytes Percent Auto 8.1 % (2-11); Neutrophils Absolute Auto 10.3 X10*3/uL (2.0-8.3); Neutrophils Percent Auto 79.1 % (45-73); Platelet Count 386 X10*3/uL (160-400); Red Blood Count 5.18 X10*6/uL (4.20-5.50)
[2021-01-12] MEDS: Lactated Ringers 1,000 ML 125 ML IVCONT (06:29)
[2021-01-12 06:38] LABS: Anion Gap 16 (12-20); Blood Urea Nitrogen 8 mg/dL (9-16); Calcium 8.8 mg/dL (8.4-10.2); Carbon Dioxide 19 mmol/L (22-29); Chloride 106 mmol/L (96-108); Creatinine Clr Calc Pharmacy 123.6; Estimated Glomerular Filt Rate > 60; Glucose Random 92 mg/dL (60-115); Potassium 4.3 mmol/L (3.3-5.1); Sodium 137 mmol/L (135-145)
[2021-01-12] MEDS: Famotidine/PF 20 MG/2 ML VIAL IVPUSH (07:17)
[2021-01-12] MEDS: Metoclopramide HCl 10 MG/2 ML VIAL IVPUSH (07:25)
[2021-01-12 08:00] VITALS: BP 150/81; PULSE 66; RESP 18; TEMP 36.8; O2SAT 96
--- NOTE | 2021-01-12 09:34 | MHC.CM.PN ---
nurse care management note electron ic medical record reviewed along with case discussed with staff nurse, patient lives with her family she is active, independent in all adls and mobility without any devices she is employed [employer]. she has no vna no dme services in the home she has been covid 19 vacinqnted with the pgixzer vaccine and second dose around august, educate about a health care proxy but decined T THIS TIME . SHE DENIED ANY OTHER COMMUNITY SERVCIES INVOLVEMENT . SHE WILL BE DISCHARGE [place] TODAY DISXCHARGE PLAN HOME NO SERVICES PCP PATIENT TO CALL FOR S/P BARIATRIC SURGERY AND POST HOSPITLA DISCHARGE SURICAL FOLLOW UP PER DISCHARGE INSTRUCTIONS TRANSPORTATION FAMILY
--- NOTE | 2021-01-12 09:41 | PM.PNGS ---
Subjective Subjective Date of Service: 01/12/21 Interval history: Pod #1 s/p lap sleeve gastrectomy and hiatal hernia repair.?? Doing well.? Tolerating stage 3 diet, ambulating in hallway.? Pain well controlled.? Denies nausea or vomiting.? Vitals and labs reviewed and are within limit for post op day 1.? On exam, patient is well appearing, abdomen is soft, nd, mild appropriate incisional tenderness.? Incisions c/d/I with dermabond in place.? Plan: d/c home today.? Follow up with me in 2 weeks Physical Exam Vital Signs: Vital Signs: Last Vital Signs Temp 98.3 F 01/12/21 08:00 Pulse 66 01/12/21 08:00 Resp 18 01/12/21 08:00 BP 150/81 H 01/12/21 08:00 Pulse Ox 96 01/12/21 08:00 Body Mass Index 41.1 Const: General: cooperative, healthy appearing, comfortable and no acute distress GI: Other: Abdomen is soft nondistended mild appropriate incisional tenderness. Incisions are clean dry intact. There is no evidence of erythema or drainage. Extrem: Other: Warm and well perfused throughout without edema or tenderness to palpation. Procedures Date of Service Date of Service: 01/12/21 Progress Note: A&P Assessment and plan (1) S/P laparoscopic sleeve gastrectomy: Status: Acute Assessment and Plan: This is a 35-year-old lady on postoperative day 1. Status post laparoscopic sleeve gastrectomy and hiatal hernia repair doing well. Patient is tolerating stage III diet and is ambulating well. Patient will be discharged home today to follow up with me as an outpatient in 2 weeks time frame. (2) History of repair of hiatal hernia: Status: Acute Fall Risk Details Current Medications: Current Medications Generic Name Dose Route Start Last Admin Trade Name Freq PRN Reason Stop Dose Admin Famotidine 20 mg 01/11/21 21:00 01/12/21 07:17 Famotidine/Pf 20 Mg/2 Ml Vial IVPUSH 20 mg BID CHRIS Administration Fentanyl 25 mcg 01/11/21 14:29 Fentanyl Citrate/Pf 100 Mcg/2 Ml Vial IVPUSH Q5M PRN Pain, Moderate (Pain Scale 4-6 Haloperidol Lactate 1 mg 01/11/21 14:29 Haloperidol Lactate 5 Mg/Ml Vial IV ONCE PRN Nausea and Vomiting Hydromorphone HCl 0.25 mg 01/11/21 14:16 01/12/21 01:38 Hydromorphone Hcl 0.5 Mg/0.5 Ml Syringe IVPUSH 0.25 mg Q4H PRN Administration Pain, Severe (Pain Scale 7-10) Hydromorphone HCl 0.25 mg 01/11/21 14:29 01/11/21 14:58 Hydromorphone Hcl 0.5 Mg/0.5 Ml Syringe IVPUSH 0.25 mg Q5M PRN Administration Pain, Severe (Pain Scale 7-10) Acetaminophen 1,000 mg in 100 mls @ 16.7 mls/hr 01/11/21 14:30 01/12/21 07:20 Ofirmev IV Not Given .Q6H CHRIS Promethazine HCl 6.25 mg/ 50.25 mls @ 201 mls/hr 01/11/21 14:29 Sodium Chloride IV ONCE PRN Nausea and Vomiting Metoclopramide HCl 10 mg 01/11/21 14:16 01/12/21 07:25 Metoclopramide Hcl 10 Mg/2 Ml Vial IVPUSH 10 mg Q6H PRN Administration Nausea Ondansetron HCl 4 mg 01/11/21 14:30 01/12/21 06:29 Ondansetron Hcl 4 Mg/2 Ml Vial IVPUSH 4 mg Q8H CHRIS Administration Sodium Chloride 3 ml 01/11/21 16:00 01/12/21 07:15 0.9 % Sodium Chloride Flush 3 Ml Syringe IVFLUSH Not Given QSHIFT CHRIS Time Spent With Patient Time: Total time spent is greater than 50% in coordination of care (as documented) at patient's floor/unit and/or counseling patient: Time with patient: less than 15 minutes Quality Stroke Does the patient have a stroke diagnosis?: No VTE Prior VTE?: No VTE Risk Level:: Surgical - moderate VTE Device Contraindication: N/A - Device Ordered VTE Drug Contraindication: Treatment Not Indicated
--- NOTE | 2021-01-12 15:52 | HO.POSTANES ---
Post Anesthesia Evaluation Post Anesthesia Evaluation Vital Signs: Vital Signs Temp Pulse Resp BP Pulse Ox 01/12/21 08:00 98.3 F 66 18 150/81 H 96 Anesthesia: General Endotracheal-GETA Mental Status: Awake Pain Control: Satisfactory Nausea/Vomiting: None Hydration: Adequate Anesthesia-Related Issues: No Anes. Related Issues
== END 2021-01-12 11:44 | disposition home or self-care (01) | DRG 403 ==
LOC: HO.SSSA 14:27 → HO.S3 14:31
PROVIDERS: Nurse Practitioner; Physician Assistant; Admitting Provider Surgery; PCP Internal Medicine; Visit Provider Surgery
PROC: 0DB64Z3 Excision of Stomach, Percutaneous Endoscopic Approach, Vertical (ICD-10-PCS; CPT 43845; principal; 2021-01-11 11:30)
DX: E66.01 Morbid (severe) obesity due to excess calories (principal); E78.00 Pure hypercholesterolemia, unspecified; K44.9 Diaphragmatic hernia without obstruction or gangrene; Z20.822 Contact with and (suspected) exposure to COVID-19; Z68.41 Body mass index [BMI] 40.0-44.9, adult; Z97.5 Presence of (intrauterine) contraceptive device; Z79.899 Other long term (current) drug therapy
CPT/HCPCS: 36415; 80048; 81003; 81025; 82040; 84590; 85025; 85610; 85730; 86850; 86900; 86901; 87635; 88307; 88342; 93005; 99024; C1776; J0131; J1100; J1170; J2250; J2405; J2765; J3010

== ENCOUNTER → 2021-01-20 14:02 | Outpatient (BNVA) | payer OTHER, SELFPAY | PROVIDERS: PCP Internal Medicine; Visit Provider Surgery | DX: Z98.84 Bariatric surgery status (principal); Z98.890 Other specified postprocedural states; Z87.19 Personal history of other diseases of the digestive system | CPT/HCPCS: 99212 ==

== ENCOUNTER → 2021-02-24 09:01 | Outpatient (BNVA) | payer OTHER, SELFPAY | PROVIDERS: PCP Internal Medicine; Visit Provider Surgery | DX: Z98.84 Bariatric surgery status (principal); Z98.890 Other specified postprocedural states; Z87.19 Personal history of other diseases of the digestive system | CPT/HCPCS: 99212 ==

== ENCOUNTER → 2021-03-17 07:58 | Outpatient (BNVA) | payer OTHER, SELFPAY | PROVIDERS: PCP Internal Medicine; Visit Provider Dietitian, Registered | DX: E66.9 Obesity, unspecified (principal); Z68.35 Body mass index [BMI] 35.0-35.9, adult | CPT/HCPCS: 97803 ==

== ENCOUNTER → 2021-04-07 09:30 | Outpatient (BNVA) | payer OTHER, SELFPAY | PROVIDERS: PCP Internal Medicine; Visit Provider Physician Assistant Surgical | DX: E66.9 Obesity, unspecified (principal); Z68.33 Body mass index [BMI] 33.0-33.9, adult | CPT/HCPCS: 99212 ==

== ENCOUNTER → 2021-05-30 08:34 | Outpatient (BNVA) | payer OTHER, SELFPAY | PROVIDERS: PCP Internal Medicine; Visit Provider Physician Assistant Surgical | DX: E66.9 Obesity, unspecified (principal); Z68.32 Body mass index [BMI] 32.0-32.9, adult | CPT/HCPCS: 99212 ==

== ENCOUNTER → 2021-07-06 08:35 | Outpatient (BNVA) | payer OTHER, SELFPAY | PROVIDERS: PCP Internal Medicine; Visit Provider Obstetrics & Gynecology ==

== ENCOUNTER → 2021-08-11 08:08 | Outpatient (BNVA) | payer OTHER, SELFPAY | PROVIDERS: PCP Internal Medicine; Visit Provider Dietitian, Registered ==

== ENCOUNTER → 2021-08-15 08:07 | Outpatient (BNVA) | payer OTHER, SELFPAY | PROVIDERS: PCP Internal Medicine; Referring Provider Physician Assistant Surgical; Visit Provider Dietitian, Registered ==

== ENCOUNTER → 2021-08-17 08:12 | Outpatient (BNVA) | payer OTHER, SELFPAY | PROVIDERS: PCP Internal Medicine; Visit Provider Dietitian, Registered | DX: E66.9 Obesity, unspecified (principal); Z68.29 Body mass index [BMI] 29.0-29.9, adult | CPT/HCPCS: 97803 ==

== ENCOUNTER → 2021-10-13 08:09 | Outpatient (BNVA) | payer OTHER, SELFPAY | PROVIDERS: PCP Internal Medicine; Visit Provider Physician Assistant Surgical | DX: Z13.89 Encounter for screening for other disorder (principal) ==

== ENCOUNTER 2022-10-08 13:18 | Outpatient (REF) | payer OTHER, SELFPAY ==
[2022-10-09 03:16] LABS: CT PCR NOT DETECTED (Not Detect.); NG PCR NOT DETECTED (Not Detect.)
[2022-10-09 09:35] LABS: BV Int Neg Control Negative (Negative); BV Int Pos Control Positive (Positive)
== END 2022-10-08 13:19 | disposition home or self-care (01) ==
LOC: HO.LNP 13:18
PROVIDERS: PCP Internal Medicine; Visit Provider Obstetrics & Gynecology
DX: B37.31 Acute candidiasis of vulva and vagina (principal)
CPT/HCPCS: 0353U; 87480; 87510; 87660; 99212

== ENCOUNTER 2022-10-25 09:58 | Outpatient (REF) | payer OTHER, SELFPAY | END 2022-10-25 09:59 | disposition home or self-care (01) | LOC: HO.LNP 09:58 | PROVIDERS: PCP Internal Medicine; Visit Provider Obstetrics & Gynecology | DX: B37.31 Acute candidiasis of vulva and vagina (principal); N89.8 Other specified noninflammatory disorders of vagina | CPT/HCPCS: 81003; 99212 ==

== ENCOUNTER 2022-10-25 10:31 | Outpatient (REF) | payer OTHER, SELFPAY ==
[2022-10-25 12:05] LABS: Glucose Fasting 74 mg/dL (60-99)
[2022-10-26 03:14] LABS: HIV AB/AG Nonreactive (Nonreactive); HIV Num 1 0.06 S/CO (0.00-0.99)
[2022-10-26 11:41] LABS: BV Int Neg Control Negative (Negative); BV Int Pos Control Positive (Positive)
== END 2022-10-25 10:32 | disposition home or self-care (01) ==
LOC: HO.LAB 10:31
PROVIDERS: PCP Internal Medicine; Visit Provider Obstetrics & Gynecology
DX: B37.31 Acute candidiasis of vulva and vagina (principal)
CPT/HCPCS: 36415; 82947; 87102; 87106; 87186; 87389; 87480; 87510; 87660

== ENCOUNTER → 2022-11-08 08:39 | Outpatient (BNVA) | payer OTHER, SELFPAY | PROVIDERS: PCP Internal Medicine; Visit Provider Obstetrics & Gynecology | DX: Z30.09 Encounter for other general counseling and advice on contraception (principal); N76.0 Acute vaginitis | CPT/HCPCS: 99212 ==

== ENCOUNTER 2022-11-21 12:14 | Outpatient (REF) | payer OTHER, SELFPAY ==
[2022-11-22 09:21] LABS: BV Int Neg Control Negative (Negative); BV Int Pos Control Positive (Positive)
== END 2022-11-21 12:15 | disposition home or self-care (01) ==
LOC: HO.LNP 12:14
PROVIDERS: PCP Internal Medicine; Visit Provider Obstetrics & Gynecology
DX: N76.0 Acute vaginitis (principal); B37.31 Acute candidiasis of vulva and vagina; B96.89 Other specified bacterial agents as the cause of diseases classified elsewhere
CPT/HCPCS: 87480; 87510; 87660; 99212

== ENCOUNTER 2023-01-02 08:09 | Outpatient (AMB) | payer OTHER, SELFPAY ==
--- NOTE | 2023-01-02 08:09 | A.OFFVIS_ITS ---
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 No complaints. Last Pap/HPV was negative in 06/30 [facility] Medical History BMI 40.0-44.9, adult COVID-19 vaccine series completed Family planning Hiatal hernia Hypercholesterolemia IUD check up PONV (postoperative nausea and vomiting) Preoperative examination Shortness of breath Vitamin A deficiency Vitamin D deficiency Well woman exam Zinc deficiency Surgical History History of History of repair of hiatal hernia S/P laparoscopic sleeve gastrectomy Family History Father No problems noted. Mother No problems noted. Sister No problems noted. Son No problems noted. Daughter No problems noted. 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 Sexually active: Yes Sexual orientation: Straight/Heterosexual Gender identity: Female Female Reproductive History Menstrual Age of Menarche: 15 control method: progestin IUCD Total pregnancies: 2 Full term: 2 Date of last pap smear: 07/05/20 Review of Systems Const All systems reviewed & are unremarkable except as noted in HPI and below Card Reports as per HPI Resp Reports as per HPI GI Reports as per HPI and Reports no additional complaints Reports as per HPI Physical Exam Vital Signs: Last Vital Signs BP 122/84 01/02/23 08:10 BMI result Body Mass Index 34.8 Const General: cooperative, healthy appearing and comfortable Chest Chest palpation & inspection: normal inspection of the chest and normal palpation of entire chest wall Breast/axilla inspection: normal inspection of the breasts and normal inspection of the axillae Breast/axilla palpation: normal palpation of the breasts, normal palpation of the axillae and no axillary lymphadenopathy Resp Effort & Inspection: normal respiratory effort Auscultation: clear to auscultation bilaterally Percussion: percussion normal Cardio Palpation: normal PMI Rate: regular rate Rhythm: regular rhythm Heart sounds: no murmurs and no rubs Peripheral pulses: Peripheral pulses 2+ throughout GI Inspection: Yes normal to inspection Palpation (GI): Soft to palpation, nontender, no guarding, not rigid and No hepatosplenomegaly present Percussion: Yes normal to percussion Auscultation: normal bowel sounds Rectal Exam - Female: deferred General: Yes bladder normal to palpation External Female Exam: No lesion Speculum Exam - Vagina: normal appearance of the vagina, normal palpation, normal vaginal discharge and not erythematous Speculum Exam - Cervix: normal appearance of the cervix and normal palpation Bimanual exam- vagina & uterus: normal bimanual exam, normal palpation, uterine size normal, bladder normal to palpation, consistency normal and normal palpation Bimanual Exam- Adnexa, other: normal adnexae, no masses and no tenderness Assessment & Plan Assessment & Plan (1) Well woman exam: Code(s): Z01.419 - Encounter for gynecological examination (general) (routine) without abnormal findings Plan: Cotesting not indicated this year. Counseled the patient about the recommended dietary allowance of 1000 mg of Calcium & 600 IU of vitamin D. The patient was instructed to perform monthly self-breast exams and to schedule an annual exam in a year; All questions answered and the patient verbalized understanding. Instructed the patient to schedule annual exam in a year Coding Level of Care Code Est Pt Prev Care 18-39y([id number]) Diagnoses Well woman exam Z01.419
[2023-01-02 08:10] VITALS: BP 122/84; BMI 34.8
== END 2023-01-02 08:38 | disposition home or self-care (01) ==
LOC: HO.HWS 08:09
PROVIDERS: PCP Internal Medicine; Visit Provider Obstetrics & Gynecology
DX: Z01.419 Encounter for gynecological examination (general) (routine) without abnormal findings (principal)
CPT/HCPCS: 99395

== ENCOUNTER → 2023-01-02 08:09 | Outpatient (BNVA) | payer OTHER, SELFPAY | PROVIDERS: PCP Internal Medicine; Visit Provider Obstetrics & Gynecology ==

== ENCOUNTER 2024-04-30 14:51 | Outpatient (AMB) | payer OTHER, SELFPAY ==
--- NOTE | 2024-04-30 14:54 | MHC.OFFVIS ---
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 No complaints. The patient mother has recently been diagnosed with breast cancer at age of 55 Last Pap/HPV was negative in 06/30 [facility] Medical History Hiatal hernia COVID-19 vaccine series completed PONV (postoperative nausea and vomiting) Well woman exam Vitamin A deficiency Zinc deficiency Vitamin D deficiency IUD check up Preoperative examination BMI 40.0-44.9, adult Shortness of breath Hypercholesterolemia Family planning Surgical History History of repair of hiatal hernia S/P laparoscopic sleeve gastrectomy History of Family History Father No problems noted. Mother Breast cancer Sister No problems noted. Son No problems noted. Daughter No problems noted. 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 Sexual orientation: Straight/Heterosexual Gender identity: Female Female Reproductive History Menstrual Age of Menarche: 15 control method: progestin IUCD (Mirena) Total pregnancies: 2 Full term: 1 Premature: 1 Review of Systems Const All systems reviewed & are unremarkable except as noted in HPI and below Card Reports as per HPI Resp Reports as per HPI GI Reports as per HPI and Reports no additional complaints Reports as per HPI Physical Exam Vital Signs: Last Vital Signs BP 130/90 H 04/30/24 14:56 BMI result Body Mass Index 36.7 Const General: cooperative, healthy appearing and comfortable Chest Chest palpation & inspection: normal inspection of the chest and normal palpation of entire chest wall Breast/axilla inspection: normal inspection of the breasts and normal inspection of the axillae Breast/axilla palpation: normal palpation of the breasts, normal palpation of the axillae and no axillary lymphadenopathy Resp Effort & Inspection: normal respiratory effort Auscultation: clear to auscultation bilaterally Percussion: percussion normal Cardio Palpation: normal PMI Rate: regular rate Rhythm: regular rhythm Heart sounds: no murmurs and no rubs Peripheral pulses: Peripheral pulses 2+ throughout GI Inspection: Yes normal to inspection Palpation (GI): Soft to palpation, nontender, no guarding, not rigid and No hepatosplenomegaly present Percussion: Yes normal to percussion Auscultation: normal bowel sounds Rectal Exam - Female: deferred General: Yes bladder normal to palpation External Female Exam: No lesion Speculum Exam - Vagina: normal appearance of the vagina, normal palpation, normal vaginal discharge and not erythematous Speculum Exam - Cervix: normal appearance of the cervix, normal palpation and Other cervical findings present (IUD thread seen) Bimanual exam- vagina & uterus: normal bimanual exam, normal palpation, uterine size normal, bladder normal to palpation, consistency normal and normal palpation Bimanual Exam- Adnexa, other: normal adnexae, no masses and no tenderness Assessment & Plan Assessment & Plan (1) Well woman exam: Code(s): Z01.419 - Encounter for gynecological examination (general) (routine) without abnormal findings Category: Medical Plan: Cotesting not indicated this year. Counseled the patient about the recommended dietary allowance of 1000 mg of Calcium & 600 IU of vitamin D. The patient was instructed to perform monthly self-breast exams and to schedule an annual exam in a year; All questions answered and the patient verbalized understanding. Instructed the patient to schedule annual exam in a year (2) Family history of breast cancer: Code(s): Z80.3 - Family history of malignant neoplasm of breast Category: Medical Plan: Discussed with the patient her increased risk for Breast ca. The lifetime risk of breast cancer based on the Tyrer-Cuzick Model is 22.2% Recommended Intensification of breast Cancer screening with annual MRI breast in addition to annual mammogram and MRI alternating every 6 months. Mammogram done recently , Breast MRI ordered Will refer to Dr Wilde for possible Genetic Ca counseling and possible testing, in addition to counseling regarding Chemoprevention strategies All questions answered, the patient verbalized understanding and agreed with the plan (3) Family planning: Code(s): Z30.09 - Encounter for other general counseling and advice on contraception Category: Social Hx Plan: GC/CT taken. Since the patient has Mirena IUD and there is an increase in the associated breast cancer risk, the recommended discontinuation of Mirena IUD and switching to ParaGard IUD. Instructions given the patient to schedule an appointment for Mirena IUD removal and ParaGard IUD insertion within 1-2 weeks. All questions answered, the patient verbalized understanding Orders: Orders MM tomosynthesis screening BI Today Z12.31 - Encounter for screening mammogram for malignant neoplasm of breast MR breast BI wo/w con Today Z80.3 - Family history of malignant neoplasm of breast Referrals General Surgery Referral Z91.89 - Other specified personal risk factors, not elsewhere classified Coding Level of Care Code Est Pt Prev Care 18-39y([id number]) Diagnoses Well woman exam Z01.419 Family history of breast cancer Z80.3 Family planning Z30.09
[2024-04-30 14:56] VITALS: BP 130/90; BMI 36.7
== END 2024-04-30 15:32 | disposition home or self-care (01) ==
LOC: HO.HWS 14:51
PROVIDERS: PCP Internal Medicine; Visit Provider Obstetrics & Gynecology
DX: Z01.419 Encounter for gynecological examination (general) (routine) without abnormal findings (principal); Z80.3 Family history of malignant neoplasm of breast; Z30.09 Encounter for other general counseling and advice on contraception
CPT/HCPCS: 99395

== ENCOUNTER 2024-04-30 14:51 | Outpatient (REF) | payer OTHER, SELFPAY ==
[2024-05-01 14:32] LABS: CT PCR NOT DETECTED (Not Detect.); NG PCR NOT DETECTED (Not Detect.)
== END 2024-04-30 14:52 | disposition home or self-care (01) ==
LOC: HO.LNP 14:51
PROVIDERS: PCP Internal Medicine; Visit Provider Obstetrics & Gynecology
DX: N76.0 Acute vaginitis (principal); Z01.419 Encounter for gynecological examination (general) (routine) without abnormal findings; Z80.3 Family history of malignant neoplasm of breast
CPT/HCPCS: 87491; 87591; 99395

== ENCOUNTER 2024-05-15 07:42 | Outpatient (AMB) | payer OTHER, SELFPAY ==
[2024-05-15 07:48] VITALS: BP 126/92; BMI 36.7
--- NOTE | 2024-05-15 07:48 | MHC.OFFVIS ---
Vital Signs 05/15/24 07:48 Height 5 ft 4 in Weight 214 lb BMI 36.7 BP 126/92 H Intake Visit Reasons: mirena removal and paragard insertion Back End Engineer Required: No Information Interpreted: non-clinical & clinical Vehicle Maintenance Technician: Vehicle Maintenance Technician Present (Neisha WEST) Accompanied by: Self / Same As Patient Allergies tetracycline Allergy (Mild, Verified 05/15/24 07:53) Hives Is last menstrual period known: No (mirena) HPI Comments Details: Presenting for Mirena IUD removal and ParaGard IUD insertion [facility] Medical History Hiatal hernia COVID-19 vaccine series completed PONV (postoperative nausea and vomiting) Well woman exam Vitamin A deficiency Zinc deficiency Vitamin D deficiency IUD check up Preoperative examination BMI 40.0-44.9, adult Shortness of breath Hypercholesterolemia Family planning Surgical History History of repair of hiatal hernia S/P laparoscopic sleeve gastrectomy History of Family History Father No problems noted. Mother Breast cancer Sister No problems noted. Son No problems noted. Daughter No problems noted. 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 Sexual orientation: Straight/Heterosexual Gender identity: Female Female Reproductive History Menstrual Age of Menarche: 15 control method: copper IUCD Physical Exam Vital Signs: Last Vital Signs BP 126/92 H 05/15/24 07:48 BMI result Body Mass Index 36.7 Office Procedures IUD Insert/Removal Details Details: Mirena IUD removal Counseling/Consent: After discussing with the patient the risks of the procedure including bleeding, infection, scar tissue formation, , possible injury to blood vessels or nerves, chronic arm pain, blood transfusion, and irregular unpredictable bleeding Alternative options were discussed with the patient including but not limited: Do nothing. The patient signed the consent and agreed with the plan; all questions answered. Urine test was done in the office and was negative Preop dx: Requesting Mirena IUD removal Op: Mirena IUD removal Post op dx: same EBL= 10 cc Procedure: The patient was put in the dorsal lithotomy position a speculum was inserted in the vagina the IUD thread identified. Using a Jany clamp the thread was grasped and the IUD pulled out with no complications. The patient tolerated the procedure well. ParaGard IUD insertion The patient last menstrual period was within the last 5 days, Urine test was done in the office and was negative; All the contraindications were excluded. The following possible complications were discussed with the patient: Intrauterine , Ectopic , Sepsis, Pelvic Infection, Irregular Bleeding, Perforation, Expulsion. The possible adverse effects were discussed with the patient including but not limited to: increased uterine bleeding, dysmenorrhea , others Alternative options were discussed with the patient including but not limited: control pills, patch, NuvaRing, Depo-medroxyprogesterone acetate, Nexplanon, copper IUD, sterilization, vasectomy, others The procedure was explained in detail to patient , at the end patient signed the informed consent obtained. Urine test was done in the office and was negative A no touch technique was used throughout the procedure. A speculum was placed into vagina and cervix was cleaned with betadine). A tenaculum was placed. A plastic sound was advanced through the external and internal os until it reached the fundus of the uterus, the depth was 7 cm. The sound was then withdrawn. The ParaGard IUD was loaded in a sterile manner and advanced into position. The string was visualized and cut to 3 cm. Tenaculum site hemostatic. All instruments removed from vagina. Patient tolerated the procedure well. NO complications were noted. Patient was instructed to call for fever over 100.4, significant pain unrelieved by Motrin, IUD expulsion, heavy bleeding, or abnormal discharge. In addition, the following clinical considerations were discussed with the patient to call for removal: Unexplained fever , or suspected , Pelvic pain or pain during sex ,HIV positive seroconversion in herself or her partner , Possible exposure to sexually transmitted infections Unusual vaginal discharge or genital sores , severe vaginal bleeding or bleeding that lasts a long time, or if she misses a menstrual period, Inability to feel IUD s threads Counseled the patient that the IUD does not protect against STI's, recommended use of condoms for the first 7 days post insertion and explained to the patient that condoms are recommended for patients at risk for sexually transmitted infections. Follow up appointment made for 6 weeks following insertion. This note was generated with a voice recognition program. Some errors may have been overlooked during the review of this note. Sometimes these errors may affect the content or meaning of a given sentence. This note was generated with a voice recognition program. Some errors may have been overlooked during the review of this note. Sometimes these errors may affect the content or meaning of a given sentence. [id number] Insertion [id number] Removal Procedure code (CPT) selection complete Office Meds ParaGard T 380A 380 square mm intrauterine device Performing Provider: Stephon Guardado MD [place] [facility] [place] [facility] Documented (not given) by: Stephon Guardado MD on 05/15/24 08:02 Dose Route Admin Location Dispensed Lot Number Expiration Date [facility] Oil Well Pumper 1 device intrauterine ea Assessment & Plan Assessment & Plan (1) Encounter for IUD removal and reinsertion: Code(s): Z30.433 - Encounter for removal and reinsertion of intrauterine contraceptive device Category: Medical Plan: Mirena IUD removed, this was followed by ParaGard IUD inserted, see procedure note Orders: Orders AMB IUD Insertion/Removal - Practice Supplied Today Z30.433 - Encounter for removal and reinsertion of intrauterine contraceptive device Medications: New ParaGard T 380A (copper) 1 device intrauterine ONCE 1 ea 0RF IUD removal and reinsertion NS Z30.433 - Encounter for removal and reinsertion of intrauterine contraceptive device Coding Level of Care Code Procedure Only Diagnoses Encounter for IUD removal and reinsertion Z30.433 CPT Codes Details - CPT: 97761-CLF Insertion ([id number]) Details - CPT: 13126-JHG Removal ([id number])
== END 2024-05-15 08:08 | disposition home or self-care (01) ==
LOC: HO.HWS 07:42
PROVIDERS: PCP Internal Medicine; Visit Provider Obstetrics & Gynecology
DX: Z30.433 Encounter for removal and reinsertion of intrauterine contraceptive device (principal); Z32.02 Encounter for pregnancy test, result negative
CPT/HCPCS: 58300; 58301

== ENCOUNTER → 2024-05-15 07:42 | Outpatient (BNVA) | payer OTHER, SELFPAY | PROVIDERS: PCP Internal Medicine; Visit Provider Obstetrics & Gynecology | DX: Z30.433 Encounter for removal and reinsertion of intrauterine contraceptive device (principal) | CPT/HCPCS: 58300; 58301; 81025; J7300 ==

== ENCOUNTER 2024-05-19 14:33 | Outpatient (AMB) | payer OTHER, SELFPAY ==
--- NOTE | 2024-05-19 14:34 | MHC.OFFVIS ---
Vital Signs 05/19/24 14:47 Height 5 ft 4 in Weight 220 lb BMI 37.8 BP 142/90 H Blood Pressure Location Lt brachial Position Sitting Pulse 85 Intake Visit Reasons: Family history of breast cancer, genetic testing Intake Note: Patient is seen in office for family history of breast cancer, genetic testing. Patient c/o:denies any concerns regarding her breast, is here for genetic testing, no prior breast surgeries or infections mm: zero Experimental Flight Test Mechanic Required: No Humid System Operator: Humid System Operator Present Accompanied by: Self / Same As Patient Allergies tetracycline Allergy (Mild, Verified 05/19/24 14:47) Hives Medication List - Last Reconciled 05/19/24 by Barrett Wilde MD No Known Home Meds HPI Comments Details: 38-year-old female patient presenting for evaluation due to a family history of breast cancer. Her mother was recently diagnosed with breast cancer at the age of 55. Her mother subsequently underwent lumpectomy followed by radiation therapy and is currently on adjuvant hormonal therapy for approximately 5 years. Hers was a mammographically diagnosed breast cancer. The patient denies any previous history of breast problems but did have a palpable mass approximately 12 years ago and subsequently underwent a mammogram which was normal. The lump subsequently subsided without the need for any surgery. She denies a history of any breast infections or breast surgery. She is 2 para 2 and breastfed both children for approximately 1 month each. She currently denies any breast lumps, breast pain, nipple discharge or enlarged lymph nodes. PFSH Medical History Hiatal hernia COVID-19 vaccine series completed PONV (postoperative nausea and vomiting) Well woman exam Vitamin A deficiency Zinc deficiency Vitamin D deficiency IUD check up Preoperative examination BMI 40.0-44.9, adult Shortness of breath Hypercholesterolemia Family planning Surgical History History of repair of hiatal hernia S/P laparoscopic sleeve gastrectomy History of Family History Father No problems noted. Mother Breast cancer, Onset Age: 55 Sister No problems noted. Son No problems noted. Daughter No problems noted. 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 Sexual orientation: Straight/Heterosexual Gender identity: Female Female Reproductive History Menstrual Age of Menarche: 15 Total pregnancies: 3 Number of Living Children: 2 Review of Systems Const All systems reviewed & are unremarkable except as noted in HPI and below Physical Exam Vital Signs: Last Vital Signs Pulse 85 05/19/24 14:47 BP 142/90 H 05/19/24 14:47 BMI result Body Mass Index 37.8 Const General: cooperative and no acute distress Nutritional Appearance: well nourished Orientation/consciousness: patient oriented x3 Limitations: no limitations HEENT Head: Yes normocephalic and Yes atraumatic Ears: hearing grossly normal bilaterally Chest Other: Left breast: No skin change, no nipple retraction, no nipple discharge, no palpable mass, no enlarged lymph nodes. Right breast: No skin change, no nipple retraction, no nipple discharge, no palpable mass, no enlarged lymph nodes Resp Effort & Inspection: normal respiratory effort, no audible wheezes, no cough and no respiratory distress Cardio Jugular venous distension: no JVD GI Inspection: Yes normal to inspection Skin Other: Warm, dry, no rash Neuro General: patient oriented x3 Extrem General: Yes no clubbing, cyanosis or edema Assessment & Plan Assessment & Plan (1) Family history of breast cancer: Code(s): Z80.3 - Family history of malignant neoplasm of breast Category: Medical Plan 38-year-old female patient presenting with a first-degree relative with breast cancer (mother age 55), placing her at high risk for breast cancer due to family history. Examination today revealed no suspicious findings in either breast. We discussed the role of mammogram starting at a least 10 years prior to her mother's diagnosis. I would suggest starting mammograms at the age of 42 unless symptomatic. We also discussed genetic testing including the risks and benefits. She wishes to proceed with genetic testing and this was performed today in the office. She will return approximately 6 weeks to review the results and discuss any additional screening recommendations. She is welcome to call sooner for any new concerns or questions. Coding Level of Care Code New Pt Level 4 (89154) Diagnoses Family history of breast cancer Z80.3
[2024-05-19 14:47] VITALS: BP 142/90; PULSE 85; BMI 37.8
== END 2024-05-19 15:27 | disposition home or self-care (01) ==
PROVIDERS: PCP Internal Medicine; Visit Provider Surgery
DX: Z80.3 Family history of malignant neoplasm of breast (principal)
CPT/HCPCS: 99204

== ENCOUNTER → 2024-05-19 14:33 | Outpatient (BNVA) | payer OTHER, SELFPAY | PROVIDERS: PCP Internal Medicine; Visit Provider Surgery | DX: Z80.3 Family history of malignant neoplasm of breast (principal) | CPT/HCPCS: 99202 ==